=== PATIENT | male | born 1995 | race Caucasian/White ===

== ENCOUNTER → 2017-10-01 | Outpatient (CLI) | payer BC | END | disposition home or self-care (01) | LOC: C.RDSM 15:44 | PROVIDERS: ATTEND Family Medicine Sports Medicine | DX: M25.562 Pain in left knee (principal) ==

== ENCOUNTER → 2017-10-02 | Outpatient (CLI) | payer BC ==
--- NOTE | 2017-10-02 16:08 | DIAGNOSTIC IMAGING REPORT ---
LEFT KNEE MRI HISTORY: Left knee pain. COMPARISON STUDY: None. TECHNIQUE: Multiplanar multisequence MRI of the left knee was performed according to standard department protocol without the use of contrast. FINDINGS: Menisci: There is an oblique tear extending to the undersurface of the junction of the body and posterior horn of the medial meniscus. The lateral meniscus appears intact. Ligaments: The anterior and posterior cruciate ligaments are intact. The medial and lateral collateral ligaments are normal in appearance. Extensor mechanism: The quadriceps tendon and patellar ligament are intact. Articular cartilage and bone: The articular cartilage is intact, and normal marrow signal intensity is seen throughout the imaged osseous structures. Joint effusion: None. Soft tissues: Small amount of prepatellar soft tissue edema. Small amount of fluid superficial to the medial gastrocnemius muscle. This likely represents a ruptured popliteal cyst. IMPRESSION: 1. An oblique tear at the junction of the body and posterior horn of the medial meniscus. 2. Small amount of fluid superficial to the medial gastrocnemius muscle. This likely represents a ruptured popliteal cyst. 3. Small amount of prepatellar soft tissue edema. Electronically signed by: Phoenix Cruz M.D. 10/02/2017 4:07 PM Dictated Date/Time: 10/02/2017 4:03 PM
== END | disposition home or self-care (01) ==
LOC: C.MRIBC 15:01
PROVIDERS: ATTEND Family Medicine Sports Medicine
DX: S76.312A Strain of muscle, fascia and tendon of the posterior muscle group at thigh level, left thigh, initial encounter (principal); M25.569 Pain in unspecified knee; X58.XXXA Exposure to other specified factors, initial encounter